=== PATIENT | male | born 1960 | race Caucasian/White ===

== ENCOUNTER 2016-04-17 12:52 | Emergency (ER) | payer OTHER ==
[2016-04-17 13:11] VITALS: BP 164/81; PULSE 72; RESP 18; TEMP 98.4; O2SAT 95
--- NOTE | 2016-04-17 13:19 | UCPHY ---
H & P Time Seen by Provider: 04/17/16 13:07 Patient Type: Established HPI/ROS: CHIEF COMPLAINT: Sinus pressure, rhinorrhea, cough HPI: The patient is a 55-year-old male with a history of prior sinus infections. He complains of approximately 1 week of rhinorrhea, cough productive of yellow sputum and bilateral sinus pressure. He denies fever today. He denies hemoptysis. He states this feels like prior sinus infections. REVIEW OF SYSTEMS: Aside from elements discussed in the HPI, a comprehensive 10-point review of systems was reviewed and is negative. PMH: Prior sinus infections. Denies diabetes or heart disease. SOCIAL HISTORY: Denies alcohol or drug abuse. FAMILY HISTORY: Reviewed, noncontributory PHYSICAL EXAM: General:Patient is alert, in no acute distress. ENT:Eyes are normal to inspection. ENT inspection normal. Neck: Normal inspection. Full range of motion. Respiratory:No respiratory distress. Breath sounds normal bilaterally. Cardiovascular: Regular rate and rhythm. Strong peripheral pulses. Normal cap refill. Abdomen:The abdomen is nontender to palpation. There are no peritoneal signs. There are normal bowel sounds. Back: Normal to inspection. No tenderness to palpation. Skin: Normal color. No rash. Warm and dry. Extremities: Normal appearance. Full range of motion. Neuro: Oriented x3. Normal motor function. Normal sensory function. Smoking Status: Never smoked Constitutional: Initial Vital Signs Temperature (C) 36.9 C 04/17/16 13:09 Heart Rate 72 04/17/16 13:09 Respiratory Rate 18 04/17/16 13:09 Blood Pressure 164/81 H 04/17/16 13:09 O2 Sat (%) 95 04/17/16 13:09 O2 Delivery Mode Room Air Allergies/Adverse Reactions: No Known Allergies Allergy (Unverified 04/14/13 16:44) Home Medications: Medication Instructions Recorded Atorvastatin Calcium [Lipitor 20 20 mg PO DAILY 09/17/11 mg (RX)] Amoxicillin/Clavulanate Pot 875 mg PO BID #14 tab 04/17/16 [Augmentin 875Mg] MDM/Departure - MDM ED Course/Re-evaluation: This patient presents with signs and symptoms of an upper respiratory infection. Given his history of prior sinus infections treated with Augmentin, he has requested antibiotics again. I will prescribe him Augmentin. See no signs of pneumonia, influenza, CHF or PE. We discussed strict return precautions. - Depart Disposition: Home, Routine, Self-Care Clinical Impression: Sinusitis Condition: Good Instructions: Sinusitis (ED) Additional Instructions: Follow-up with your primary doctor within 72 hours. Return to the Emergency Department for fever, chest pain, shortness of breath, increasing pain or other worsening of condition. Prescriptions: Amoxicillin/Clavulanate Pot [Augmentin 875Mg] 875 mg PO BID #14 tab Referrals: Sherlyn Guzmán MD [Primary Care Provider] - As per Instructions - PQRS PQRS Measurement: 134: Depression screening and followup, PRIME -PHQ2 (12 years and older) Over the last 2 weeks, how often have you been bothered by any of the following problems? 1. Feeling down, depressed, or hopeless? 2. Little interest or pleasure in doing things? Patient answered no to both 1 and 2 130: Documentation of medications. Reviewed all patient medications, doses, route and frequency. 226: Do you smoke? No. 51: 18 years old and older with diagnosis of COPD, spirometry performance. Spirometry not performed; equipment not available. Patient has no history of COPD 52: 18 years old and older with COPD and symptoms of COPD or FEV1<60% predicted prescribed a B Agonist. Spirometry not performed; equipment not available.
== END 2016-04-17 13:34 | disposition home or self-care (01) ==
LOC: CED 12:52
DX: J01.90 Acute sinusitis, unspecified (principal)
CPT/HCPCS: 99214-PO; G0463-PO

== ENCOUNTER → 2016-10-29 | Outpatient (CLI) | payer OTHER | LOC: FIMAGING 09:04 | PROVIDERS: ATTEND Family Medicine | DX: M25.552 Pain in left hip (principal) ==